=== PATIENT | female | born 1970 | race African-American/Black ===

== ENCOUNTER 2023-06-23 10:31 | Day surgery (SDC) | payer OTHER, SELFPAY ==
[2023-06-21 11:39] VITALS: BMI 27.7
--- NOTE | 2023-06-22 09:16 | HO.ANESPROP2 ---
Documented by User: Gracie Jon NP 06/22/23 09:17 HPI - Anesthesia Eval Consult details Narrative: 52yo F for Left Lateral Rectus Eye Muscle Recession,Left Medial Rectus Resection Medically optimized [facility] Past Medical History Medical History Amblyopia ex anopsia of left eye Multiple sclerosis Hx of migraines Surgical History Surgical History Hx of eye surgery Hx of hysterectomy Hx of hernia repair Social History Social History Patient Tobacco Use Status: Never used Tobacco Use of substances other than those prescribed or required for medical reasons: No Are you DNR?: No Advance Directives: No Advance Directives Information Provided: Yes Meds Allergies Allergy/AdvReac Type Severity Reaction Status Date / Time sulfamethoxazole Allergy Severe Angioedema Verified 06/21/23 11:35 [From Bactrim] trimethoprim [From Bactrim] Allergy Severe Angioedema Verified 06/21/23 11:35 Penicillins Allergy Rash Verified 06/21/23 11:35 Home Medications Medication Instructions Recorded Confirmed Last Taken Type fluticasone propionate 50 1 spray intranasal DAILY 06/22/23 06/23/23 Unknown History mcg/actuation nasal spray,suspension Exam Exam Date and Time: June 22, 2023 0916 Height,Weight and Vital Signs: Height 5 ft 9.5 in Weight 86.18 kg Assessment and Plan Assessment Anesthesia Assessment: Chart Reviewed Documented by User: Li Buchanan MD 06/23/23 12:35 [facility] Past Medical History Medical History Amblyopia ex anopsia of left eye Multiple sclerosis Hx of migraines Family History Family history of problems with anesthesia: No Surgical History Surgical History Hx of eye surgery Hx of hysterectomy Hx of hernia repair History of Problems with Anesthesia: No Social History Social History Patient Tobacco Use Status: Never used Tobacco Use of substances other than those prescribed or required for medical reasons: No Are you DNR?: No Advance Directives: No Advance Directives Information Provided: Yes Meds Allergies Allergy/AdvReac Type Severity Reaction Status Date / Time sulfamethoxazole Allergy Severe Angioedema Verified 06/21/23 11:35 [From Bactrim] trimethoprim [From Bactrim] Allergy Severe Angioedema Verified 06/21/23 11:35 Penicillins Allergy Rash Verified 06/21/23 11:35 Home Medications Medication Instructions Recorded Confirmed Last Taken Type fluticasone propionate 50 1 spray intranasal DAILY 06/22/23 06/23/23 Unknown History mcg/actuation nasal spray,suspension Exam Height,Weight and Vital Signs: Height 5 ft 9.5 in Weight 86.18 kg Vital Signs Temp Pulse Resp BP Pulse Ox O2 Del Method 06/23/23 11:51 97.4 F 60 18 130/68 99 Room Air Airway Mallampati Class: III TM Dist: >3cm Neck ROM: Full Loose/Missing/Broken Teeth: No (Denies broken, loose, missing teeth) Heart: RRR Lungs: CTAB Assessment and Plan Assessment Anesthesia Assessment: Anesthesia Plan Discussed Final Anesthetic Review Family History of Problems with Anesthesia: No History of Problems with Anesthesia: No NPO: Yes ASA Class: II Final Preanesthetic Review: No Changes in Pt Med Stat, Meds/Allgs Chart Reviewed, Consent Obtained/Reviewed and Anes Risks/Benef Reviewed Patient Risk: Intermediate Procedure Risk: Low Assessment/Block/Sedation in SS: Assess/Block/Sedation-SS Anesthetic Plan Anesthetic Plan: GA Disposition: Standard PACU
[2023-06-23 11:38] VITALS: BMI 26.2
[2023-06-23 11:51] VITALS: BP 130/68; PULSE 60; RESP 18; TEMP 36.3; O2SAT 99
[2023-06-23] MEDS: Lactated Ringers 1,000 ML 100 ML IVCONT (12:06)
--- NOTE | 2023-06-23 14:08 | HO.OPHTHAL ---
Ophthalmology Operative Note Date of Service: 06/23/23 Narrative: Diagnosis exotropia. Procedures 1. Recession of left lateral rectus 9 mm 2. Resection of left medial rectus [address] Reza. Anesthesia general. Complications none. The patient was brought to the operating room placed under general anesthesia. The left eye was prepped and draped in the usual sterile ophthalmic fashion. A lid speculum was placed in the eye and an incision was made at bare sclera in the inferotemporal fornix. The lateral rectus muscle was hooked and secured with a double-armed Vicryl suture. It was reattached to a position 9 mm behind the original insertion. Conjunctiva was closed with interrupted Vicryl sutures. A peritomy was then created around the medial rectus muscle. It was hooked and found to be 6 mm behind its original insertion. Surrounding scar tissue was dissected free and the muscle was secured approximately 1-2 mm above its posterior insertion. Muscle was then disinserted from the globe and reattached to a position approximately 4.5 mm behind the surgical limbus. Conjunctiva was closed with interrupted Vicryl sutures. The patient was then awoken from general anesthesia and discharged to postoperative recovery in good condition.
[2023-06-23 14:10] VITALS: BP 146/82; PULSE 80; RESP 16; TEMP 36.2; O2SAT 100
[2023-06-23 14:15] VITALS: BP 145/81; PULSE 82; RESP 16; O2SAT 100
[2023-06-23 14:20] VITALS: BP 130/78; PULSE 72; RESP 16; O2SAT 100
[2023-06-23 14:24] VITALS: BP 135/76; PULSE 74; RESP 16; O2SAT 99
[2023-06-23 14:39] VITALS: BP 146/79; PULSE 52; RESP 16; TEMP 36.4; O2SAT 97
== END 2023-06-23 15:16 | disposition home or self-care (01) ==
PROVIDERS: PCP Internal Medicine; Visit Provider Ophthalmology
PROC: (CPT 67312; principal; 2023-06-23 14:00)
DX: H50.112 Monocular exotropia, left eye (principal); H53.002 Unspecified amblyopia, left eye; G35 Multiple sclerosis; G43.009 Migraine without aura, not intractable, without status migrainosus; Z88.0 Allergy status to penicillin; Z88.2 Allergy status to sulfonamides
CPT/HCPCS: 67312; J1100; J1885; J2405; J3010